=== PATIENT | female | born 1945 | race Caucasian/White ===

== ENCOUNTER → 2018-09-29 | Outpatient (CLI) | payer MEDICARE, OTHER ==
[~2018-09-29] MED LIST: CALCIUM PO; CELEBREX200 MG PO; DIOVAN HCT 80-1 EACH PO; FISH OIL PO; LUNESTA PO; MEDROL4 MG PO; MULTIVITAMINS1 EAC8 PO; NORCO PO; PREMPRO 0.3 MG1 EACH PO; VITAMIN D PO
--- NOTE | 2018-09-29 17:03 | Diagnostic Imaging Report ---
Labeled WBC Study Reason for exam: 72 F with RA and multiple seromas of right knee. RIght knee replacement in 2011 later requiring more surgeries. Left knee arthroplasty in 04/2018. Comparison: Report: The patient's own white blood cells were labeled with Tc-99m HMPAO 24 mCi by a commercial radiopharmacy. Images of the knees were obtained at 3 hours post administration of the labeled white blood cells. Moderately increased tracer surrounds the femoral component of the right knee prosthesis. Increased tracer is also seen in the soft tissue posterior to the proximal tibia. No abnormal accumulation of tracer is seen in the right femoral or right tibial shafts. The left knee is unremarkable. IMPRESSION: Concern for infection surrounding the femoral component of the right knee prosthesis. No distinct foci of increased tracer in the surrounding soft tissue. Soft tissue inflammatory process in the posterior to the right tibia proximally. Signed by: Dr. Carito Cook M.D. on 09/29/2018 4:59 PM
== END ==
LOC: NM 07:55
PROVIDERS: ATTEND Internal Medicine Infectious Disease
DX: T84.53XA Infection and inflammatory reaction due to internal right knee prosthesis, initial encounter (principal); L03.115 Cellulitis of right lower limb
CPT/HCPCS: 78806; A9521; A9556; A9570

== ENCOUNTER → 2018-09-30 | Outpatient (CLI) | payer MEDICARE, BC ==
[~2018-09-30] MED LIST changes: +LIDOCAINE HCL 1% LOCAL INJ 20 ML VIAL ONE
--- NOTE | 2018-10-02 08:40 | Diagnostic Imaging Report ---
Procedure: Ultrasound guided aspiration of right lower extremity soft tissue lesion sizing machine operator: Ky Waddell MD History: History of rheumatoid arthritis, right knee arthroplasty in 2012, subsequent revision. Tagged WBC study on 09/29/2018 demonstrating findings concerning for infection of the femoral component of the right knee prosthesis. The patient has had a recurrent soft tissue nodule anterior to the proximal tibia, below the patella. This was reportedly previously drained and thought to represent a seroma, but has enlarged recently. Referred from infectious disease for aspiration of suspected fluid collection. Pre-operative diagnosis: Right lower extremity suspected fluid collection Post-operative diagnosis: Right lower extremity suspected soft tissue solid nodule Conscious Sedation: None The patient's heart rate and pulse oximetry were continuously monitored by the interventional radiology nurse. Additional Medications: 1% subcutaneous lidocaine 5 cc Estimated blood loss: None. Blood products administered: None Specimens: None Implants: None Condition at completion: Stable DISCUSSION: Informed consent was obtained and documented in the medical record. The right lower extremity was prepped and draped in standard sterile fashion. Initial ultrasound demonstrated a 2.6 x 11.7 cm homogeneous, likely solid soft tissue nodule with vascularity along the posterior aspect. The lesion appears to communicate with the knee joint posteriorly. Subsequently, 1% lidocaine was infiltrated into the skin and subcutaneous tissues for local anesthesia. Then under continuous sonographic guidance, a 22-gauge needle was advanced into the lesion and aspiration was attempted. No fluid could be aspirated. The needle was removed. Sterile bandage was placed. The patient tolerated the procedure well without immediate complication. IMPRESSION: Attempted aspiration of right lower extremity soft tissue lesion with no fluid able to be drained. The lesion likely represents a soft tissue nodule rather than a fluid collection, and appears to communicate with the knee joint. In a patient with rheumatoid arthritis, synovial proliferation with vascularity is possible, however, a biopsy is recommended to exclude neoplastic process. Signed by: Dr. Ky Waddell MD on 10/02/2018 8:36 AM
== END ==
LOC: DX 14:20
PROVIDERS: ATTEND Internal Medicine Infectious Disease
DX: L03.115 Cellulitis of right lower limb (principal); T84.53XA Infection and inflammatory reaction due to internal right knee prosthesis, initial encounter
CPT/HCPCS: 10160; 76942; J2001

== ENCOUNTER → 2019-09-04 | Day surgery (SDC) | payer MEDICARE, BC ==
[2019-09-02 14:26] LABS: BASOPHILS # (AUTO) 0.1 (0.0-0.1); BASOPHILS % 0.7 % (0.0-1.0); EOSINOPHILS # (AUTO) 0.1 (0.0-0.4); EOSINOPHILS % 0.4 % (0.0-6.0); HEMATOCRIT 39.4 % (34.2-44.1); HEMOGLOBIN 12.2 g/dL (12.0-16.0); LYMPHOCYTES # (AUTO) 0.9 (1.0-3.2); LYMPHOCYTES % 7.2 % (18.0-39.1); MEAN CORPUSCULAR HEMOGLOBIN 27.7 pg (28-32); MEAN CORPUSCULAR VOLUME 89.5 fL (81-99); MONOCYTES # (AUTO) 0.6 (0.2-0.8); MONOCYTES % 4.5 % (4.4-11.3); NEUTROPHILS # (AUTO) 10.5 (2.1-6.9); NEUTROPHILS % 84.4 % (38.7-80.0); PLATELET COUNT 273 x10e3/uL (140-360); RED CELL DISTRIBUTION WIDTH 15.8 % (11.7-14.4)
[2019-09-02 14:42] LABS: ANION GAP 14.9 mmol/L (8-16); CALCIUM 9.7 mg/dL (8.4-10.2); CREATININE, SERUM 1.34 mg/dL (0.57-1.11); POTASSIUM 3.9 mmol/L (3.5-5.1)
--- NOTE | 2019-09-02 15:30 | Diagnostic Imaging Report ---
Exam: Chest radiograph Clinical History: Preoperative clearance Findings: The cardiomediastinal silhouette and lungs are normal. The regional skeleton and soft tissue are unremarkable. There is no evidence of pleural effusion or pneumothorax. Impression: No radiographic evidence of acute cardiopulmonary disease. Signed by: Dr. Josh Carreno MD on 09/02/2019 3:27 PM
[2019-09-02 19:47] LABS: LYMPHOCYTES % (MANUAL) 9 % (19-48); MONOCYTES % (MANUAL) 4 % (3.4-9.0); NEUTROPHILS % (MANUAL) 86 % (40-74)
[2019-09-02 19:48] LABS: PLATELET ESTIMATE ADEQUATE; PLATELET MORPHOLOGY COMMENT NORMAL; RBC MORPHOLOGY COMMENT NORMAL
[~2019-09-04] MED LIST changes: +ASPIRIN81 MG PO; +BUPIVACAINE HCL 0.5% INJ 30 ML VIAL INJ ONE; +COLACE100 MG PO; +CYCLOBENZAPRINE10 MG PO; +CYMBALTA30 MG PO; +DEXAMETHASONE SOD PHOS INJ 4 MG/ML VIAL ONE; +DOXYCYCLINE HY100 M3 PO; +HYDRALAZINE HCL 20 MG/ML VIAL ONE; +LABETALOL HCL 5 MG/ML 20ML VIAL ONE; -LIDOCAINE HCL 1% LOCAL INJ 20 ML VIAL ONE; +LIDOCAINE HCL 2% LOCAL INJ 5 ML SDV VIAL INJ ONE; +LUNESTA3 MG PO; +LYRICA50 MG PO; +NEOSTIGMINE 1 MG/ML 10ML VIAL ONE; +NORCO 10-325 T1 EACH PO; +ONDANSETRON HCL INJ 2MG/ML 2ML 2 MG/ML VIAL ONE; +PROPOFOL IV EMULSION 10 MG/ML 20 ML VIAL ONE; +SEVOFLURANE INHAL SOLN 250 ML PEN BTL ONE; +TRAZODONE HCL50 MG PO; +TRIAMTERENE-HC1 EAC2 PEG; +ULTRAM50 MG PO; +VALTREX500 MG PO; +VANCOMYCIN 1GM/NS 250 ML 250 ML ONE; +VITAMIN D33000 UNIT PO
--- OUTSIDE RECORDS SUMMARY | 2019-09-04 06:50 | XMS REPORT ---
Author [facility] Address Unknown Phone Unavailable Care Team Providers Care Breaker Layer Name Role Phone FRANCY BRITO Unavailable Unavailable SIRIA YUEN Unavailable Unavailable Payers Payer Name Policy Type Policy Number Effective Date Expiration Date Problems This patient has no known problems. Allergies, Adverse Reactions, Alerts Allergy Name Allergy Type Status Severity Reaction(s) Onset Date Inactive Date Treating Clinician Comments penicillin V potassium DA Active SV 2014-10-20 00:00:00 tetanus toxoid, adsorbed DA Active SV 2014-10-20 00:00:00 adhesive tape DA Active U 2014-10-20 00:00:00 levofloxacin DA Active SV 2014-10-20 00:00:00 Medications This patient has no known medications. Encounters Start Date/Time End Date/Time Encounter Type Admission Type Attending Clinicians Care Facility Care Department Encounter ID 2018-11-19 11:23:00 Inpatient [facility] [id number] 2019-06-12 14:10:00 2019-06-12 14:10:00 Outpatient [id number] 2019-02-11 22:05:00 2019-02-11 16:17:00 Inpatient [facility] [id number] Results Test Description Test Time Test Comments Text Results Atomic Results Result Comments CHEST 2 VIEWS 2019-09-02 15:27:00 [facility] [address] [place], [place] [address] Patient Name: DENNYS GARCIA MR #: [id number] : 1945 Age/Sex: 73/F Req #: [id number] Adm Physician: Ordered by: FRANCY BRITO DPM Report #: [id number] Location: OR Room/Bed: Procedure: [id number] DX/CHEST 2 VIEWS Exam Date: 09/02/19 Exam Time: 1408 REPORT STATUS: Signed Exam: Chest radiograph Clinical History: Preoperative c learance Findings: The cardiomediastinal silhouette and lungs are normal. The regional skeleton and soft tissue are unremarkable. There is no evidence of pleural effusion or pneumothorax. Impression: No radiographic evidence of acute cardiopulmonary disease. Signed by: Dr. Josh Carreno MD on 09/02/2019 3:27 PM Dictated By: JENNIFFER CARRENO MD 152 Transcribed By: NORMAN on 09/02/19 152 COPY TO: FRANCY BRITO DPElvira PUNCTURE ASPIR(ABSCESS/HEMATOM 2018-10-01 17:08:00 [place] [address] Patient Name: DENNYS GARCIA MR #: [id number] : 1945 Age/Sex: 72/F Req #: [id number] Adm Physician: Ordered by: SIRIA YUEN MD Report #: [id number] Location: DX Room/Bed: Procedure: [id number] IR/PUNCTURE ASPIR(ABSCESS/HEMATOM Exam Date: 09/30/18 Exam Time: 1500 REPORT STATUS: Signed Procedure: Ultrasound guided aspiration of right lower extremity soft tissue lesion lie detector operator: Stoney De Guzman MD History: History of rheumatoid arthritis, right knee arthroplasty in 2011, subsequent revision. Tagged WBC study on 09/29/2018 demonstrating findings concerning for infection of the femoral component of the right knee prosthesis. The patient has had a recurrent soft tissue nodule anterior to the proximal tibia, below the patella. This was reportedly previously drained and thought to represent a seroma, but has enlarged recently. Referred from infectious disease for aspiration of suspected fluid collection. Pre-operative diagnosis: Right lower extremity suspected fluid collection Post-operative diagnosis: Right lower extremity suspected soft tissue solid nodule Conscious Sedation: None The patient's heart rate and pulse oximetry were continuously monitored by the interventional radiology nurse. Additional Medications: 1% subcutaneous lidocaine 5 cc Estimated blood loss: None. Blood products administered: None Specimens: None Implants: None Condition at completion: Stable DISCUSSION: Informed consent was obtained and documented in the medical record. The right lower extremity was prepped and draped in standard sterile fashion. Initial ultrasound demonstrated a 2.6 x 11.7 cm homogeneous, likely solid soft tissue nodule with vascularity along the posterior aspect. The lesion appears to communicate with the knee joint posteriorly. Subsequently, 1% lidocaine was infiltrated into the skin and subcutaneous tissues for local anesthesia. Then under continuous sonographic guidance, a 22-gauge needle was advanced into the lesion and aspiration was attempted. No fluid could be aspirated. The needle was removed. Sterile bandage was placed. The patient tolerated the procedure well without immediate complication. IMPRESSION: Attempted aspiration of right lower extremity soft tissue lesion with no fluid able to be drained. The lesion likely represents a soft tissue nodule rather than a fluid collection, and appears to communicate with the knee joint. In a patient with rheumatoid arthritis, synovial proliferation with vascularity is possible, however, a biopsy is recommended to exclude neoplastic process. Signed by: Dr. Stoney De Guzman MD on 10/02/2018 8:36 AM Dictated By: STONEY DE GUZMAN MD 5 Transcribed By: NORMAN on 10/02/18835 COPY TO: SIRIA YUEN MD US GUIDANCE NEEDLE LOCALIZAT 2018-10-01 17:08:00 [facility] [address] [place], [place] [address] Patient Name: DENNYS GARCIA MR #: [id number] : 1945 Age/Sex: 72/F Req #: [id number] Adm Physician: Ordered by: SIRIA YUEN MD Report #: [id number] Location: DX Room/Bed: Procedure: [id number] US/US GUIDANCE NEEDLE LOCALIZAT Exam Date: 09/30/18 Exam Time: 1600 REPORT STATUS: Signed Procedure: Ultrasound guided aspiration of right lower extremity soft tissue lesion lie detector operator: Stoney De Guzman MD History: History of rheumatoid arthritis, right knee arthroplasty in 2011, subsequent revision. Tagged WBC study on 09/29/2018 demonstrating findings concerning for infection of the femoral component of the right knee prosthesis. The patient has had a recurrent soft tissue nodule anterior to the proximal tibia, below the patella. This was reportedly previously drained and thought to represent a seroma, but has enlarged recently. Referred from infectious disease for aspiration of suspected fluid collection. Pre-operative diagnosis: Right lower extremity suspected fluid collection Post-operative diagnosis: Right lower extremity suspected soft tissue solid nodule Conscious Sedation: None The patient's heart rate and pulse oximetry were continuously monitored by the interventional radiology nurse. Additional Medications: 1% subcutaneous lidocaine 5 cc Estimated blood loss: None. Blood products administered: None Specimens: None Implants: None Condition at completion: Stable DISCUSSION: Informed consent was obtained and documented in the medical record. The right lower extremity was prepped and draped in standard sterile fashion. Initial ultrasound demonstrated a 2.6 x 11.7 cm homogeneous, likely solid soft tissue nodule with vascularity along the posterior aspect. The lesion appears to communicate with the knee joint posteriorly. Subsequently, 1% lidocaine was infiltrated into the skin and subcutaneous tissues for local anesthesia. Then under continuous sonographic guidance, a 22-gauge needle was advanced into the lesion and aspiration was attempted. No fluid could be aspirated. The needle was removed. Sterile bandage was placed. The patient tolerated the procedure well without immediate complication. IMPRESSION: Attempted aspiration of right lower extremity soft tissue lesion with no fluid able to be drained. The lesion likely represents a soft tissue nodule rather than a fluid collection, and appears to communicate with the knee joint. In a patient with rheumatoid arthritis, synovial proliferation with vascularity is possible, however, a biopsy is recommended to exclude neoplastic process. Signed by: Dr. Stoney De Guzman MD on 10/02/2018 8:36 AM Dictated By: STONEY DE GUZMAN MD 5 Transcribed By: NORMAN on 10/02/18835 COPY TO: SIRIA YUEN MD TAGGED WBC 2018-09-29 16:51:00 [place] [address] Patient Name: DENNYS GARCIA MR #: [id number] : 1945 Age/Sex: 72/F Req #: [id number] Adm Physician: Ordered by: SIRIA YUEN MD Report #: [id number] Location: [place] Room/Bed: Procedure: [id number] NM/TAGGED WBC Exam Date: 09/29/18 Exam Time: 0800 REPORT STATUS: Signed Labeled WBC Study Reason for exam: 72 F with RA and multiple seromas of right knee. RIght knee replacement in 2011 later requiring more surgeries. Left knee arthroplasty in 04/2018. Comparison: Report: The patient's own white blood cells were labeled with Tc-99m HMPAO 24 mCi by a commercial radiopharmacy. Images of the knees were obtained at 3 hours post administration of the labeled white blood cells. Moderately increased tracer surrounds the femoral component of the right knee prosthesis. Increased tracer is also seen in the soft tissue posterior to the proximal tibia. No abnormal accumulation of tracer is seen in the right femoral or right tibial shafts. The left knee is unremarkable. IMPRESSION: Concern for infection surrounding the femoral component of the right knee prosthesis. No distinct foci of increased tracer in the surrounding soft tissue. Soft tissue inflammatory process in the posterior to the right tibia proximally. Signed by: Dr. Viki Cook M.D. on 09/29/2018 4:59 PM Di ctated By: VIKI COOK MD 58 Transcribed By: NORMAN on 09/29/181658 COPY TO: SIRIA YUEN MD
--- OUTSIDE RECORDS SUMMARY | 2019-09-04 06:50 | XMS REPORT | Summary of Care ---
Author Author MIGNON Nunez, ANGELA Organization Unknown Address Unknown Phone Unavailable Care Team Providers Care Fishing Tackle Repairer Name Role Phone MIGNON Nunez, ANGELA Unavailable Unavailable CHIQUIS Nunez, FREDERICK Davies Unavailable CHIQUIS MCKEON IN, FREDERICK Miguel Unavailable Unavailable KAYLA MCKEON IN, EVE Mena Unavailable Unavailable ANGELA CROW II, MD Unavailable Unavailable Unavailable Unavailable Functional Status Name Dates Details Functional status health issues are not documented Status: Name Dates Details Cognitive status health issues are not documented Status: Problems Name Dates Details Pre-operative general physical examination (V72.83, Z01.818) Status: Active Cellulitis (682.9, L03.90) Status: Active Essential (primary) hypertension (401.9, I10) Status: Active Pre-operative cardiovascular examination (V72.81, Z01.810) Status: Active Back pain (724.5, M54.9) Status: Active Lower back pain (724.2, M54.5) Status: Active UTI (urinary tract infection) (599.0, N39.0) Status: Active Hypotension (458.9, I95.9) Status: Active Anemia (285.9, D64.9) Status: Active Shingles rash (053.9, B02.9) Status: Active Neuralgia (729.2, M79.2) Status: Active Achilles tendinitis (726.71, M76.60) Status: Active Right knee pain (719.46, M25.561) Status: Active S/P revision of total knee, 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, 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) Status: Active Cyst of right knee joint (719.86, M25.861) Status: Active 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, 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 Abnormal electrocardiogram (794.31, R94.31) Status: Active Open wound of knee, right, subsequent encounter (V58.89, S81.001D) Status: Active Pain in both knees, unspecified chronicity (719.46, M25.561) Status: Active Right elbow pain (719.42, M25.521) Status: Active Olecranon bursitis of right elbow (726.33, M70.21) Status: Active 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, 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 Low back pain (724.2, M54.5) Status: Active Degenerative scoliosis (737.30, M41.50) Status: Active Infection and inflammatory reaction due to internal right knee prosthesis, initial encounter (996.66, 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 Patella fracture (822.0, S82.009A) Status: Active Aftercare following right knee joint replacement surgery (V54.81, Z47.1) Status: Active Left patella fracture (822.0, S82.002A) Status: Active Medications Name Dates Details CeleBREX 200 MG Oral Capsule TAKE 1 CAPSULE DAILY Active methylPREDNISolone 4 MG Oral Tablet TAKE 1 TABLET DAILY * Refills: 0 Active Prempro 0.3-1.5 MG Oral Tablet TAKE 1 TABLET DAILY DIRECTED. * Refills: 0 Active Lunesta 3 MG Oral Tablet TAKE 1 TABLET BEDTIME * Refills: 0 Active NexIUM 40 MG Oral Capsule Delayed Release TAKE 1 CAPSULE EVERY OTHER DAY * Refills: 0 Active Vitamin D 50 MCG (2000 UT) Oral Tablet TAKE 1 TABLET DAILY * Refills: 0 Active Multivitamins TABS TAKE 1 TABLET DAILY. * Refills: 0 Active Stool Softener TABS TAKE 1 TABLET DAILY DIRECTED. * Refills: 0 Active Folic Acid TABS TAKE 1 TABLET DAILY * Refills: 0 Active diazePAM 10 MG Oral Tablet TAKE 1 TABLET TWICE DAILY NEEDED. * Refills: 0 Active Methocarbamol 500 MG Oral Tablet TAKE 2 TABLETS 4 TIMES DAILY NEEDED. * Refills: 0 Active Gabapentin 800 MG Tab (OR) - 61186_Deactivated TAKE 1 TABLET 3 TIMES DAILY. * Refills: 0 Active Sulfamethoxazole-Trimethoprim 800-160 MG Oral Tablet TAKE 1 TABLET TWICE DAILY WITH FOOD. * Quantity: 60 Refills: 6 FREDERICK SIM M.D. * Start : 01-Feb-2016 Active DME WOUND CARE RIGHT KNEE/LOWER EXTREMITY. * Quantity: 1 Refills: 0 FREDERICK SIM M.D. * Start : 02-Feb-2016 Active Colace 100 MG Oral Capsule TAKE 1 CAPSULE TWICE DAILY. * Quantity: 28 Refills: 0 BRALY M.D., MARSHALL * Start : 17-Nov-2018 Active Celecoxib 200 MG Oral Capsule TAKE 1 CAPSULE TWICE DAILY * Quantity: 56 Refills: 0 BRALY M.D., MARSHALL * Start : 17-Nov-2018 Active Gabapentin 300 MG Oral Capsule TAKE 1 CAPSULE BY MOUTH THREE TIMES DAILY * Quantity: 90 Refills: 0 BRALY M.D., MARSHALL * Start : 17-Nov-2018 Active Ondansetron HCl - 4 MG Oral Tablet Take 1 tablet Q8H PRN for nausea * Quantity: 15 Refills: 0 BRALY M.D., MARSHALL * Start : 17-Nov-2018 Active Aspir-Low 81 MG Oral Tablet Delayed Release Take 1 tablet twice daily x4 weeks * Quantity: 56 Refills: 0 BRALY M.D., MARSHALL * Start : 17-Nov-2018 Active Colace 100 MG Oral Capsule TAKE 1 CAPSULE TWICE DAILY. * Quantity: 28 Refills: 0 BRALY M.D., MARSHALL * Start : 17-Nov-2018 Active Celecoxib 200 MG Oral Capsule TAKE 1 CAPSULE TWICE DAILY NEEDED. * Quantity: 28 Refills: 0 BRALY M.D., MARSHALL * Start : 17-Nov-2018 Active Gabapentin 300 MG Oral Capsule TAKE 1 CAPSULE BY MOUTH THREE TIMES DAILY * Quantity: 90 Refills: 0 BRALY M.D., MARSHALL * Start : 17-Nov-2018 Active Ondansetron HCl - 4 MG Oral Tablet Take 1 tablet Q8H PRN for nausea * Quantity: 15 Refills: 0 BRALY M.D., MARSHALL * Start : 17-Nov-2018 Active traMADol HCl - 50 MG Oral Tablet Take 1 tab Q4-6H prn for pain * Quantity: 60 Refills: 0 BRALY M.D., MARSHALL * Start : 17-Nov-2018 Active HYDROcodone-Acetaminophen 10-325 MG Oral Tablet TAKE 1 TABLET EVERY 4 TO 6 HOURS NEEDED FOR PAIN. * Quantity: 40 Refills: 0 BRALY M.D., MARSHALL * Start : 21-Nov-2018 Active Allergies and Adverse Reactions Name Dates Details Levaquin TABS (Allergy) Status: Active Penicillins (Allergy) Status: Active TETANUS (Allergy) Status: Denied Past Medical History Name Dates Details History of Abnormal electrocardiogram (794.31, R94.31) Status: Resolved History of Arthritis (V13.4) Status: Resolved History of Diverticulosis (562.10, K57.90) Status: Resolved History of osteopenia (V13.59, Z87.39) Status: Resolved History of Renal Insufficiency (593.9) Status: Resolved History of Rheumatoid arthritis (714.0, M06.9) Status: Resolved Procedures Procedure Dates Details History of Tonsillectomy With Adenoidectomy Completed History of Hallux Valgus (Bunion) Correction Completed History of Knee Surgery Completed History of Open Treatment Of Supracondylar Humeral Fracture Completed Immunization Name Dates Details Pneumococcal polysaccharide vaccine, 23 valent on: 20-Oct-2013 Family History Name Dates Details Family history of Arthritis (V17.7) Status: Active Family history of Rectal Cancer Status: Active Name Dates Details Family history of Brain Tumor Status: Active Name Dates Details Family history of Cirrhosis Status: Active Family history of Alcohol Abuse Status: Active Social History Name Dates Details - Status: Name Dates Details Never smoker Vital Signs Date Test Result Details No Known Vitals to report Results Date Description Value Details 26-Jun-20198:52 [U] XR KNEE 3 VWS BILATERAL XR KNEE 3 VWS BILATERAL Images acquired, not reported on this accession number. Plan of Care Name Dates Details Planned Observations Planned Goals not documented Planned Encounters Appointment; ANGELA CROW M.D. On: 25-Dec-2019 10:45 Interventions Provided Labs/Procedures/Imaging* [U] XR KNEE 3 VWS BILATERAL; Done: 26 Jun 2019 Plan* 33-year-old female presents the clinic for follow-up of her right TKA stage I revision. * Patient has very good range of motion and is happy with her surgery for her stage I revision. Given that she is not very active and has excellent range of motion with no pain we will consider leaving her in the stage I revision and not advancing her to a stage II due to possible complications from the surgery and the fact that she is doing so well with her stage I. * X-rays of the left knee did demonstrate a patellar fracture with patella marleny but she has excellent range of motion 0-100 and no pain in the knee so we will treat this with a nonsurgical option and continue to monitor unless it bothers her in the future. * Patient will return to the clinic in 6 months for follow-up of her right TKA and to make sure to the left knee is still doing well. * All questions were answered patient agrees with the above plan. Instructions Name Dates Details Instructions not documented Encounters Appointment; EVE GARZA M.D. Encounter Diagnosis: Problem not documented On: 23-Oct-2018 15:30 Appointment; ANGELA CROW M.D. Encounter Diagnosis: Problem not documented On: 30-Oct-2018 11:30 Appointment; ANGELA CROW M.D. Encounter Diagnosis: Problem not documented On: 07-Nov-2018 11:00 Appointment; ANGELA CROW M.D. Encounter Diagnosis: Problem not documented On: 19-Nov-2018 11:00 Appointment; ANGELA CROW M.D. Encounter Diagnosis: Problem not documented On: 24-Nov-2018 14:15 Appointment; ANGELA CROW M.D. Encounter Diagnosis: Problem not documented On: 27-Nov-2018 11:00 Appointment; ANGELA CROW M.D. Encounter Diagnosis: Problem not documented On: 04-Dec-2018 11:30 Appointment; ANGELA CROW M.D. Encounter Diagnosis: Problem not documented On: 18-Dec-2018 11:30 Appointment; ANGELA CROW M.D. Encounter Diagnosis: Problem not documented On: 15-Jan-2019 14:00 Appointment; ANGELA CROW M.D. Encounter Diagnosis: Problem not documented On: 26-Feb-2019 11:30 Appointment; ANGELA CROW M.D. Encounter Diagnosis: Problem not documented On: 02-Apr-2019 9:30 Appointment; PRASHANTH STERN D.O. Encounter Diagnosis: Problem not documented On: 14-Apr-2019 15:30 Appointment; ANGELA CROW M.D. Encounter Diagnosis: Problem not documented On: 26-Jun-2019 8:15
[2019-09-04 09:20] VITALS: BP 145/76
--- NOTE | 2019-09-07 23:45 | Operative Report ---
DATE OF PROCEDURE: 09/04/2019 SURGEON: Slick Milton DPM PREOPERATIVE DIAGNOSES: Hallux abductovalgus deformity with degenerative joint disease and rheumatoid arthritis, right foot. 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 NAME OF THE OPERATION: A modified Raphael bunionectomy of the right foot with pinning. ANESTHESIA: General endotracheal. HEMOSTASIS: A right thigh tourniquet at 350 mmHg. PROCEDURE IN DETAIL: The patient was taken to the operating room in a mildly sedated state, placed on the operating table in supine position. Following induction of general anesthetic, the right lower extremity was elevated to 60 degrees to exsanguinate for inflating pneumatic thigh tourniquet to 350 mmHg to create hemostasis. Right lower extremity was placed on the operating table prior to performing the following procedure. Procedure #1: Raphael bunionectomy of the right foot. An approximate 6 cm dorsal linear incision was made across the dorsal medial aspect 1st metatarsophalangeal joint of the right foot. Incision was deepened via sharp and blunt dissection on the level of dorsal capsular structure. Care was taken to identify and retract all vital structures encountered. The head of the first metatarsal was delivered in the surgical site remodeled utilizing an oscillating saw. The base of the proximal phalanx was noted to be significantly hypertrophic and devoid of adequate cartilage. It was removed utilizing oscillating saw, and the digit was pinned in the appropriate alignment. After rasping the area was irrigated with copious amounts of sterile saline solution. Deep closure was 3-0 Vicryl, subcutaneous closure with 4-0 Vicryl, and skin closure 4-0 nylon. The areas of surgery were then blocked with 0.5 Marcaine Decadron [place] released pneumatic thigh tourniquet showed normal hyperemic flush to all digits of the right foot. The patient left the operating room, vital signs stable in apparent satisfactory condition, having tolerated both anesthetic and procedure very well. SIRISHA Zelaya/FELIBERTOL /[id number]
== END | disposition home or self-care (01) ==
LOC: OR 06:25
PROVIDERS: ATTEND Podiatrist Foot Surgery
DX: M20.11 Hallux valgus (acquired), right foot (principal); M19.071 Primary osteoarthritis, right ankle and foot; M06.9 Rheumatoid arthritis, unspecified; K21.9 Gastro-esophageal reflux disease without esophagitis; I12.9 Hypertensive chronic kidney disease with stage 1 through stage 4 chronic kidney disease, or unspecified chronic kidney disease; N18.9 Chronic kidney disease, unspecified; Z88.1 Allergy status to other antibiotic agents; Z88.0 Allergy status to penicillin; Z01.810 Encounter for preprocedural cardiovascular examination; Z01.812 Encounter for preprocedural laboratory examination; Z01.818 Encounter for other preprocedural examination; Z79.82 Long term (current) use of aspirin
CPT/HCPCS: 28292; 36415; 71046; 80048; 85025; 93005; C1713; J0360; J1100; J2001; J2405; J2704; J2710; J3370; J3490; 76000

== ENCOUNTER → 2019-11-06 | Outpatient (CLI) | payer MEDICARE, BC ==
[~2019-11-06] MED LIST changes: -BUPIVACAINE HCL 0.5% INJ 30 ML VIAL INJ ONE; -DEXAMETHASONE SOD PHOS INJ 4 MG/ML VIAL ONE; -HYDRALAZINE HCL 20 MG/ML VIAL ONE; -LABETALOL HCL 5 MG/ML 20ML VIAL ONE; -LIDOCAINE HCL 2% LOCAL INJ 5 ML SDV VIAL INJ ONE; -NEOSTIGMINE 1 MG/ML 10ML VIAL ONE; -ONDANSETRON HCL INJ 2MG/ML 2ML 2 MG/ML VIAL ONE; -PROPOFOL IV EMULSION 10 MG/ML 20 ML VIAL ONE; -SEVOFLURANE INHAL SOLN 250 ML PEN BTL ONE; -VANCOMYCIN 1GM/NS 250 ML 250 ML ONE
--- NOTE | 2019-11-06 16:19 | Diagnostic Imaging Report ---
MRI of the left hip without contrast. History: Hip pain. Hip fracture. Decreased range of motion. Technique: Multiplanar multisequence MRI of the hip without contrast Findings: No acute fracture, subluxation or avascular necrosis. Scattered degenerative change about the visualized lower lumbar spine and pelvis. The urinary bladder and remainder the visualized pelvic structures are grossly unremarkable. Scattered degenerative change about the hip with thinning of the articular cartilage at the superior lateral acetabulum and adjacent femoral head. Degeneration and fraying of the labrum. Physiologic amount of fluid in the hip joint. The remainder of the visualized ligaments and tendons about the hip are intact. No evidence to suggest greater trochanteric bursitis. Diffuse muscle atrophy. The visualized neurovascular bundles are intact. Impression: 1. Degenerative arthrosis in the left hip. No acute fracture, subluxation or avascular necrosis. Signed by: Dr. Saul Brown M.D. on 11/06/2019 4:16 PM
== END ==
LOC: MRI 14:27
PROVIDERS: ATTEND Orthopaedic Surgery
DX: M70.62 Trochanteric bursitis, left hip (principal); M25.552 Pain in left hip